=== PATIENT | female | born 1975 | race Hispanic/Latino ===

== ENCOUNTER → 2021-10-19 | Day surgery (SDC) | payer OTHER ==
[~2021-10-19] MED LIST: AMLODIPINE BESY10 MG PO; ATIVAN0.5 MG PO; BACLOFEN10 MG PO; BUSPIRONE HCL10 MG PO; CYMBALTA30 MG PO; DEXAMETHASONE SOD PHOS INJ 4 MG/ML SDV ONE; FLONASE ALLERG9.9 ML INH; FOLIC ACID0.4 MG PO; GENTAMICIN 80MG/NS 100 ML 200 ML IV ONE; KETOROLAC TROMETHAMINE 30 MG/ML VIAL ONE; LIDOCAINE HCL 2% LOCAL INJ 5 ML SDV VIAL INJ ONE; MACROBID 100 M100 MG PO; METOPROLOL SUCC25 MG PO; MIDODRINE HCL5 MG PO; ONDANSETRON HCL INJ 2MG/ML 2ML 2 MG/ML VIAL ONE; OXYBUTYNIN CHLOR5 MG PO; PAMELOR25 MG PO; PERCOCET 7.5-31 EACH PO; POVIDONE IODINE 0.05% 0.05 % ML PO ONE; PROMETHAZINE HC25 M1 PO; PROPOFOL IV EMULSION 10 MG/ML 20 ML VIAL ONE; SEVOFLURANE INHAL SOLN 250 ML PEN BTL ONE; SODIUM CHLORIDE 0.9% 50ML 50 ML ONE; TEMAZEPAM15 MG PO; vit d2 PO
[2021-10-19 10:44] VITALS: BP 112/52
== END | disposition home or self-care (01) ==
LOC: OR 06:48
PROVIDERS: ATTEND Urology
DX: N39.0 Urinary tract infection, site not specified (principal); N31.9 Neuromuscular dysfunction of bladder, unspecified; G82.50 Quadriplegia, unspecified; I10 Essential (primary) hypertension; Z01.810 Encounter for preprocedural cardiovascular examination; Z01.812 Encounter for preprocedural laboratory examination; Z20.822 Contact with and (suspected) exposure to COVID-19; Z79.899 Other long term (current) drug therapy; V89.2XXS Person injured in unspecified motor-vehicle accident, traffic, sequela
CPT/HCPCS: 36415; 51040; 52005; 74420; 84702; 93005; C1758; J0690; J1580; J1885; U0002; J1100; J2001; J2405